=== PATIENT | female | born 1930 | race Caucasian/White ===

== ENCOUNTER → 2017-08-13 | Outpatient (CLI) | payer OTHER | LOC: FIMAGING 16:45 | PROVIDERS: ATTEND Family Medicine Sports Medicine | DX: S22.41XA Multiple fractures of ribs, right side, initial encounter for closed fracture (principal); W19.XXXA Unspecified fall, initial encounter ==

== ENCOUNTER 2017-08-14 16:20 | Emergency (ER) | payer OTHER ==
--- NOTE | 2017-08-14 16:31 | EDPHY ---
H & P Stated Complaint: RT HIP PAIN WITH SOME VISION CHANGES SINCE FALL Time Seen by Provider: 08/14/17 16:25 - Personal History Current Tetanus/Diphtheria Vaccine: Unsure Current Tetanus Diphtheria and Acellular Pertussis (TDAP): Unsure - Medical/Surgical History Hx Asthma: No Hx Chronic Respiratory Disease: No Hx Diabetes: No Hx Cardiac Disease: No Hx Renal Disease: No Hx Cirrhosis: No Hx Alcoholism: No Hx HIV/AIDS: No Hx Splenectomy or Spleen Trauma: No Other PMH: hypothyroid - Social History Smoking Status: Never smoked Constitutional: Initial Vital Signs Temperature (C) 36.6 C 08/14/17 16:25 Heart Rate 88 08/14/17 16:25 Respiratory Rate 18 08/14/17 16:25 Blood Pressure 148/69 H 08/14/17 16:25 O2 Sat (%) 94 08/14/17 16:25 O2 Delivery Mode Room Air Allergies/Adverse Reactions: meperidine [From Demerol] Allergy (Verified 08/14/17 16:27) Home Medications: Medication Instructions Recorded ARMOUR THYROID 11/23/15 Ibuprofen [Motrin (*)] 600 mg PO Q6-8PRN PRN #15 tab 11/23/15 Medical Decision Making - Diagnostics Imaging Results: Imaging Impressions Brain MRI 08/14/17 16:43 Impression: 1. Tiny focal signal void only seen on susceptibility weighted imaging left posterior midbrain near the colliculus probably from hemosiderin deposition and possibly tiny hemorrhage not visible on other sequences. The etiology is indeterminate but could be secondary to previous trauma, amyloid angiopathy, or tiny cavernous hemangioma. This could potentially account for diplopia. Consider follow-up MRI in 6 months to confirm stability. 2. Additional tiny signal void representing blood products right posterior cerebellum just posterior to the cerebellar peduncle in a parasagittal location. This could also represent tiny focus of blood products/hemosiderin. This could also be followed. 3. Mild age-related cerebral atrophy. 4. No significant White matter ischemic changes. If symptoms worsen, additional imaging may be necessary. Findings discussed with Rommel Payan MD at 18:49 hour, 08/14/2017. Imaging: Discussed imaging studies w/ full roll inspector Radiologist ED Course/Re-evaluation: CHIEF COMPLAINT: Diplopia after fall. HISTORY OF PRESENT ILLNESS: This patient is an 87 y/o female complaining of diplopia and dizziness. She sustained a mechanical fall nine days ago, 08/05/17. She denies syncope and states she slipped in the street. She fell on her right side and is not sure if she hit her head. She did not seek medical care at that time. She had no headache and no evidence of trauma including bruising or abrasions to her head. She felt well following the incident. Two days ago, , she developed diplopia with downward gaze beginning . She saw her primary care physician, Dr. Orellana, who diagnosed her with rib fractures by x- ray and referred her to optometry for evaluation of her diplopia. She endorses dizziness when she looks down, but not up. Today, she saw Dr. Perez, divinity professor, who noted she had weak eye muscles. She presents with concern for stroke vs. subdural hematoma vs. muscle pull. The patient requests imaging studies for further evaluation. She denies headache, weakness or numbness in her extremities, nausea, vomiting, chest pain, shortness of breath, or other associated symptoms. REVIEW OF SYSTEMS: A 10 point review of systems was performed and is negative with the exception of the elements mentioned in the history of present illness. PHYSICAL EXAM: HR, BP, O2 Sat, RR. Temp noted General Appearance: Alert, well hydrated, appropriate, and non-toxic appearing. Head: Atraumatic without scalp tenderness or obvious injury Eyes: Pupils equal, round, reactive to light and accommodation, no trauma, no injection. Ears: Clear bilaterally, no perforation, normal landmarks Nose: Atraumatic, no rhinorrhea, clear. Throat: There is no erythema or exudates, no lesions, normal tonsils, mucus membranes moist. Neck: Supple, nontender, no lymphadenopathy. Respiratory: No retractions, no distress, no wheezes, and no accessory muscle use. Lungs are clear to auscultation bilaterally. Cardiovascular: Regular rate and rhythm, no murmurs, rubs, or gallops. Bilateral carotid, radial, dorsalis pedis, and posterior tibial pulses intact. Good capillary refill all extremities. Gastrointestinal: Abdomen is soft, nontender, non-distended, no masses, no rebound, no guarding, no peritoneal signs. Musculoskeletal: Normal active ROM of all extremities, atraumatic. Neurological: Alert, appropriate, and interactive. The patient has normal DTRs and non-focal cranial nerves, motor, sensory, and cerebellar exam. Skin: No rashes, good turgor, no nodules on palpation. Past medical history: Hypothyroid. Past surgical history: Noncontributory. Family history: Noncontributory. Social history: Son at bedside. Lives in [place]. Retired. DIFFERENTIAL DIAGNOSIS: The differential diagnosis for the patient's dizziness included but was not limited to peripheral and central causes of vertigo, orthostatic causes including dehydration, cardiogenic and neurogenic causes, and blood loss. The differential diagnosis for the patient's neurologic deficits included but was not limited to peripheral causes, central causes including CVA, TIA, electrolyte abnormalities and dehydration, cardiogenic causes, atypical causes like migraine syndrome. MEDICAL DECISION [id number] y/o female presents with extraocular muscle dysfunction identified earlier today by her divinity professor. She has diplopia on inferior gaze with poor tracking of EOM inferior rectus. Patient is wearing sunglasses following her eye exam. Plan for MRI brain w/o contrast to evaluate for acute processes. 18:[address] Hamilton, radiologist. MRI brain shows potential hemorrhage in colliculus and in right cerebellum. 18:[address] Whitehead, hospitalist regarding possible admission. He recommends consult with neurosurgery. 18:[address] Rico, neurosurgeon. He will review the patient's MR scan. 19:15 Dr. Rico reviewed the patient's scan. Her collicular and cerebellar hemorrhages are true findings. He recommends admission for observation. No medical interventions necessary at this time. 19:[address] Whitehead, hospitalist. He accepts admission for diplopia and brain stem hemorrhage. Plan to consult with Dr. Ac, neurologist. 19:[address] Ac. He will consult. 19:36 Reassessed patient. Discussed imaging results. Discussed my strong recommendation for admission, as well as my consults with neurosurgery, neurology, and hospital medicine. The patient states she prefers to go home. Son states he lives next door to her and they prefer to leave. I explained the benefits of admission for further observation, but the patient continues to declines admission. Cancelled bed request. Plan to discharge home as requested. Follow up and strict return precautions discussed. The patient and her son have been instructed to call Dr. Ac's office for outpatient followup tomorrow. They are comfortable with this plan. Departure - Departure Disposition: Home, Routine, Self-Care Clinical Impression: Diplopia, Cerebellar hemorrhage, acute, Cerebral hemorrhage Condition: Good Instructions: Diplopia (ED) Additional Instructions: 1. Follow up with Dr. Ac, neurologist, as soon as possible. Call tomorrow for an appointment. 2. Return to the emergency department immediately for headache, further visual changes, imbalance, vomiting, or any other concerns or worsening of condition. Referrals: Petrona De Oliveira MD [Primary Care Provider] - As per Instructions Antonio Ac DO [Medical Doctor] - As per Instructions Report Scribed for: Rommel Payan Report Scribed by: Natacha Knott Date of Report: 08/14/17 Time of Report: 16:31
[2017-08-14 18:15] VITALS: RESP 16; TEMP 98.2
[2017-08-14 19:50] VITALS: BP 161/97; PULSE 83; O2SAT 96
== END 2017-08-14 19:50 | disposition home or self-care (01) ==
LOC: UNDOADMOB 19:28
DX: H53.2 Diplopia (principal); S06.370A Contusion, laceration, and hemorrhage of cerebellum without loss of consciousness, initial encounter; S06.2X0A Diffuse traumatic brain injury without loss of consciousness, initial encounter; W18.39XA Other fall on same level, initial encounter